=== PATIENT | male | born 2000 | race African-American/Black ===

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

== ENCOUNTER 2018-09-01 20:10 | Emergency (ER) | payer OTHER ==
[~2018-09-01] VITALS: Ht 185.4 cm; Wt 82.1 kg
[2018-09-01 20:45] VITALS: Ht 185.4 cm; Wt 82.1 kg
[2018-09-02 01:18] VITALS: BP 136/79
== END 2018-09-02 01:18 | disposition home or self-care (01) ==
LOC: ED 20:10
DX: S09.8XXA Other specified injuries of head, initial encounter (principal); S16.1XXA Strain of muscle, fascia and tendon at neck level, initial encounter; S86.912A Strain of unspecified muscle(s) and tendon(s) at lower leg level, left leg, initial encounter; V48.5XXA Car driver injured in noncollision transport accident in traffic accident, initial encounter; Y93.I9 Activity, other involving external motion; Y92.488 Other paved roadways as the place of occurrence of the external cause; Y99.8 Other external cause status; Z88.0 Allergy status to penicillin